=== PATIENT | male | born 1940 | race Caucasian/White ===

== ENCOUNTER 2016-08-16 08:06 | Emergency (ER) | payer MEDICARE, SELFPAY ==
[~2016-08-16 08:06] MED LIST: BROVANA15 MCG/2 M IH; BUMETANIDE1 MG PO; CENTRUM SILVER1 EAC1 PO; COREG12.5 MG PO; HYDRALAZINE HC100 MG PO; IPRAT-ALBUT 0.5-3 ML NEB; ISOSORBIDE DINI30 MG PO; LEVAQUIN750 MG PO; LIPO-FLAVONOID1 EACH PO; PLAVIX75 MG PO; PRAVASTATIN SOD10 MG PO; PULMICORT0.5 MG/2 M IH
== END 2016-08-16 10:30 | disposition home or self-care (01) ==
LOC: ER 08:06
DX: J44.1 Chronic obstructive pulmonary disease with (acute) exacerbation (principal); J90 Pleural effusion, not elsewhere classified; I13.2 Hypertensive heart and chronic kidney disease with heart failure and with stage 5 chronic kidney disease, or end stage renal disease; N18.6 End stage renal disease; I50.9 Heart failure, unspecified; I25.2 Old myocardial infarction; E78.5 Hyperlipidemia, unspecified; D64.9 Anemia, unspecified; F17.210 Nicotine dependence, cigarettes, uncomplicated; Z95.5 Presence of coronary angioplasty implant and graft; Z79.82 Long term (current) use of aspirin; Z79.02 Long term (current) use of antithrombotics/antiplatelets; Z79.899 Other long term (current) drug therapy; Z91.030 Bee allergy status; Z88.8 Allergy status to other drugs, medicaments and biological substances
CPT/HCPCS: 36415

== ENCOUNTER 2016-09-21 22:39 | Emergency (ER) | payer MEDICARE, SELFPAY | END 2016-09-22 01:41 | disposition home or self-care (01) | LOC: ER 22:39 | DX: I13.0 Hypertensive heart and chronic kidney disease with heart failure and stage 1 through stage 4 chronic kidney disease, or unspecified chronic kidney disease (principal); N18.9 Chronic kidney disease, unspecified; I50.9 Heart failure, unspecified; I73.9 Peripheral vascular disease, unspecified; I25.2 Old myocardial infarction; E78.5 Hyperlipidemia, unspecified; Z79.82 Long term (current) use of aspirin; Z79.899 Other long term (current) drug therapy; Z91.030 Bee allergy status; Z88.8 Allergy status to other drugs, medicaments and biological substances; Z99.2 Dependence on renal dialysis | CPT/HCPCS: 36415 ==

== ENCOUNTER 2016-11-13 13:22 | Emergency (ER) | payer MEDICARE, SELFPAY | END 2016-11-13 15:33 | disposition short-term general hospital (02) | LOC: ER 13:22 | DX: I13.2 Hypertensive heart and chronic kidney disease with heart failure and with stage 5 chronic kidney disease, or end stage renal disease (principal); N18.6 End stage renal disease; I50.9 Heart failure, unspecified; H26.9 Unspecified cataract; F17.200 Nicotine dependence, unspecified, uncomplicated; Z99.2 Dependence on renal dialysis; Z95.5 Presence of coronary angioplasty implant and graft; Z79.82 Long term (current) use of aspirin; Z79.899 Other long term (current) drug therapy; Z91.030 Bee allergy status; Z88.8 Allergy status to other drugs, medicaments and biological substances | CPT/HCPCS: 36415 ==